=== PATIENT | female | born 1940 | race Caucasian/White ===

== ENCOUNTER → 2016-10-10 | Outpatient (CLI) | payer MEDICARE, BC ==
--- NOTE | 2016-10-10 15:29 | RADRPT ---
PROCEDURE: XR Pelvis and Hips. CLINICAL INDICATION: Pelvic pain. Bilateral hip pain. TECHNIQUE: Five views. Frontal pelvis. Frontal and lateral right hip. Frontal and lateral left hip. COMPARISON: No prior studies are available for comparison. FINDINGS: There is no fracture or dislocation. The soft tissues are normal. Articular surfaces are intact. There is no lytic or blastic lesion. The upper pelvis is not completely included on the images. There is no radiopaque foreign body. IMPRESSION: 1. Unremarkable x-ray pelvis and bilateral hips. RPTAT: QQ .Marcel Ramos MD, MD Date Time Electronically viewed and signed by .Marcel Ramos MD, on 10/10/2016 15:29 .R/
--- NOTE | 2016-10-10 22:38 | HKNOTE ---
DATE OF SERVICE: 10/10/2016 MAIN COMPLAINT: Pain over both greater trochanters. HISTORY OF MAIN COMPLAINT: The patient is a 76-year-old female who developed pain over both of her greater trochanters about 4 months ago. She has rheumatoid arthritis. PRESENT COMPLAINTS: The pain is localized over greater trochanters. There is no radiation to her b ack or down her legs. Pain is aggravated by sleeping on either side and by weightbearing and walkin g. On a level surface, she can "not walk very far." She does not use a walking aid. She has a his tory of scoliosis but has never had sciatica. She takes Extra Strength Tylenol for the pain. She i s limping all the time. She does not have a shoe lift. She can clip her toenails and tie her shoel aces. PAST ORTHOPEDIC HISTORY: Two arthroscopic operations on the left knee. One operative arthroscopy o n the right knee. Operative arthroscopy on the right shoulder. Outpatient surgery on her left foot . PRIOR CORTISONE INTAKE: By injection. It only gave her temporary relief. ALCOHOL INTAKE: None. OTHER JOINT PROBLEMS: Knee pain. BLOOD TESTS FOR ARTHRITIS: Positive for rheumatoid arthritis. PAST MEDICAL HISTORY: 1. Hypertension. 2. Asthma. 3. Seasonal allergies. PAST SURGICAL HISTORY: 1. Hysterectomy. 2. Gallbladder removed. 3. Shoulder surgery on the right. 4. Knee arthroscopy on the right. 5. Knee arthroscopy on the left. ALLERGIES: 1. MORPHINE. 2. DILAUDID. 3. CODEINE. 4. HYDROCODONE. 5. VICODIN. 6. PENICILLIN. 7. SULFA. 8. IODINE. 9. ZINC COBALT. 10. SHELLFISH. 11. ____. 12. PEANUTS. 12. BEES. MEDICATIONS: 1. Propranolol. 2. Levothyroxine. 3. Triamterene. 4. Xanax. 5. Methotrexate. 6. Folic acid. 7. Hydrochloroquine. 8. Remicade infusions. 9. Dicyclomine. 10. Omeprazole. FAMILY HISTORY: Father at unstated age of cancer and diabetes. No information on the mother. SYSTEMS REVIEW: Prone to heartburn. Gait disturbance. Hypertension. History of pneumonia. Histo ry of peptic ulcer. HABITS: The patient does not smoke or drink alcoholic beverages. JEWELRY ESTIMATOR: Dr. Erik Irwin, [id number] [place], [place]. PHYSICAL EXAMINATION: GENERAL: A very fit and youthful 76-year-old female. She comes in with her . VITAL SIGNS: Height 5 feet 3 inches. Weight 190 pounds. Blood pressure 140/60, temperature 98.0. GAIT: The patient's gait is mildly antalgic. HIPS: Both hips have a full range of motion without pain. There is marked tenderness over both gre ater trochanters. LEFT KNEE: The left knee shows normal alignment. Active and passive extension is 0 degrees. Active and passive flexion is 135 degrees. The medial and lateral collateral ligaments and cruciate ligamen ts are intact. Reneé test is negative. There is no effusion, tenderness, scarring, crepitus, or cy sts. The patella tracks normally. There is no tenderness on the articular surface of the patella or in the patellar groove. The Q angle is normal. RIGHT KNEE: The right knee shows normal alignment. Active and passive extension is 0 degrees. Activ e and passive flexion is 135 degrees. The medial and lateral collateral ligaments and cruciate ligam ents are intact. Renée test is negative. There is no effusion, tenderness, scarring, crepitus, or cysts. The patella tracks normally. There is no tenderness on the articular surface of the patella o r in the patellar groove. The Q angle is normal. IMAGING: Plain x-rays of her pelvis and hips obtained today show the most minimal narrowing of both hip joint spaces. Otherwise, entirely normal. DIAGNOSES: 1. Bilateral trochanteric bursitis. 2. Hypertension. 3. Asthma. 4. Seasonal allergies. MANAGEMENT: Under sterile conditions, given injection of 2 mL of Kenalog and 6 mL of 2% lidocaine i nto both trochanteric bursas, and she will be seen again as necessary. Dictated By: JAKE WILSON/ADÁN Conf#: [id number] DID#: [id number] CC: Erik Irwin;*EndCC*
== END | disposition home or self-care (01) ==
LOC: HKI 15:01
DX: M70.62 Trochanteric bursitis, left hip (principal); M70.61 Trochanteric bursitis, right hip; I10 Essential (primary) hypertension; J45.909 Unspecified asthma, uncomplicated; Z88.0 Allergy status to penicillin; Z88.2 Allergy status to sulfonamides; Z90.710 Acquired absence of both cervix and uterus
CPT/HCPCS: 20610; 73523; G0463; J3301

== ENCOUNTER → 2017-12-20 | Outpatient (CLI) | END | disposition home or self-care (01) ==